=== PATIENT | male | born 1955 | race Caucasian/White ===

== ENCOUNTER 2016-11-03 16:33 | Emergency (ER) | payer MEDICARE ==
[2016-11-03 17:05] LABS: HEMOGLOBIN 16.3 gm/dl (14.0-17.5); RED BLOOD COUNT 5.28 M/UL (4.20-5.50); WHITE BLOOD COUNT 10.2 K/UL (4.5-11.0)
[2016-11-03 17:34] LABS: BUN/CREATININE RATIO 26 (0-10)
== END 2016-11-04 00:10 | disposition home or self-care (01) ==
LOC: ER1 16:33
PROVIDERS: Emergency Medicine
DX: I48.2 Chronic atrial fibrillation (principal); I95.9 Hypotension, unspecified; R07.89 Other chest pain; R53.83 Other fatigue; I11.0 Hypertensive heart disease with heart failure; I50.9 Heart failure, unspecified; F17.210 Nicotine dependence, cigarettes, uncomplicated; Z88.8 Allergy status to other drugs, medicaments and biological substances; Z95.1 Presence of aortocoronary bypass graft; Z79.01 Long term (current) use of anticoagulants; Z79.899 Other long term (current) drug therapy
CPT/HCPCS: 36415; 36600; 70450; 71010; 80053; 80178; 81001; 82550; 82553; 82803; 83874; 83880; 84443; 84484; 85025; 87086; 93005; 99285